=== PATIENT | female | born 1995 | race Caucasian/White ===

== ENCOUNTER → 2022-12-09 13:08 | Outpatient (CLI) | payer BC, SELFPAY ==
--- NOTE | ~2022-12-09 | US_ITS ---
EXAMINATION: US OB <=14 wk fetus w TV DATE: 12/09/2022 13:41 INDICATION: Gestational dating and viability. TECHNIQUE: Real-time transabdominal and transvaginal obstetric ultrasound. FINDINGS: No prior studies for comparison. The uterus measures 13 x 7 x 7.9 cm. There is an intrauterine gestational sac, with pole identi fied. There is a small subchorionic hemorrhage measuring 1.5 x 0.9 x 0.3 cm. The crown rump length me asures 2.6 cm, which correlates with a estimated gestational age of 9 weeks 3 days. heart ton es are identified measuring 177 BPM. There is a 2.8 cm corpus luteal cyst of the left ovary. Right ov sony is unremarkable. IMPRESSION: 1. SL IUP with an EGA of 9 weeks, 3 days (EDC by current ultrasound of 07/11/2023). 2: Small subchorionic hemorrhage. 3: Corpus luteal cyst of the left ovary measuring 2.8 cm. Reviewed, dictated and finalized at location L. IMPRESSION: 1. SL IUP with an EGA of 9 weeks, 3 days (EDC by current ultrasound of 07/11/20). 2: Small subchorionic hemorrhage. 3: Corpus luteal cyst of the left ovary measuring 2.8 cm.
== END ==
PROVIDERS: PCP Physician Assistant; Visit Provider Registered Nurse
DX: Z36.9 Encounter for antenatal screening, unspecified (principal); Z3A.09 9 weeks gestation of pregnancy
CPT/HCPCS: 76801; 76817

== ENCOUNTER 2022-12-25 14:19 | Outpatient (CLI) | payer BC, SELFPAY ==
[2022-12-25 15:26] LABS: Hematocrit 34.2 % (37.0-47.0); Hemoglobin 11.6 g/dL (12.0-15.0); Mean Corpuscular HGB Conc 33.9 g/dl (32-36); Mean Corpuscular Hemoglobin 29.7 pg (26-34); Mean Corpuscular Volume 87.7 fl (80-100); Platelet Count Result 278 k/mm3 (150-375); Red Cell Distribution Width 12.5 % (11.5-14.5); White Blood Count 9.6 K/mm3 (4.5-10.0)
[2022-12-25 15:32] LABS: Appearance Urine Clear (Clear); Bilirubin Urine Negative (Negative); Blood Urine Negative (Negative); Color Urine Yellow (Yellow); Glucose Urine UA Negative (Negative); Ketones Urine 2+ mg/dL (Negative); Leukocyte Esterase Ur Negative LEU/UL (NEGATIVE); Nitrate Urine Negative (Negative); Protein Urine Negative (Negative); Specific Grav Ur 1.016 (1.001-1.035); Urobilinogen Urine 0.2 mg/dL (<2.0)
[2022-12-25 16:03] LABS: Vitamin D 25 Hydroxy 29.5 ng/mL
[2022-12-25 16:11] LABS: HIV 1/2 Ab P24 Ag Result Negative (Negative)
[2022-12-25 16:14] LABS: Add Urine Microscopic? NO
[2022-12-25 16:34] LABS: Hepatitis C Virus Antibody Negative (Negative)
[2022-12-25 16:37] LABS: Hepatitis B Surface Antigen Negative (Negative); Rubella IgG Antibody 4.7 IU/ML
[2022-12-26 13:18] LABS: Rapid Plasma Reagin Non-Reactive (NonReactive)
[2022-12-28 11:53] LABS: Varicella IgG Antibody <135.00 Index (>=165.00)
== END 2022-12-25 14:20 | disposition home or self-care (01) ==
LOC: ANHLAB 14:21
PROVIDERS: PCP Physician Assistant; Visit Provider Obstetrics & Gynecology
DX: Z34.90 Encounter for supervision of normal pregnancy, unspecified, unspecified trimester (principal); Z3A.00 Weeks of gestation of pregnancy not specified
CPT/HCPCS: 36415; 81003; 82306; 83021; 84443; 85027; 86592; 86703; 86762; 86787; 86803; 86850; 86900; 86901; 87086; 87340; G0432

== ENCOUNTER 2023-02-24 17:30 | Outpatient (RCR) | payer BC, SELFPAY ==
[2023-02-24] MEDS: RHO(D) IMMUNE GLOBULIN 300 MCG/2 ML SYRINGE IM (17:42)
== END 2023-05-25 23:59 | disposition home or self-care (01) ==
LOC: ANHOBOP 17:30
PROVIDERS: PCP Physician Assistant; Visit Provider Obstetrics & Gynecology
DX: Z29.13 Encounter for prophylactic Rho(D) immune globulin (principal); O36.0190 Maternal care for anti-D [Rh] antibodies, unspecified trimester, not applicable or unspecified; Z3A.00 Weeks of gestation of pregnancy not specified
CPT/HCPCS: 36415; 85461; 86850; 86900; 86901; 90384; 96372; J2790

== ENCOUNTER 2023-04-27 07:05 | Outpatient (CLI) | payer BC, SELFPAY ==
[2023-04-27 09:28] LABS: Basophils Percent Auto 0.4 % (0.2-1.2); Eosinophils Absolute Auto 0.1 K/mm3 (0-0.3); Eosinophils Percent Auto 1.5 % (0-4.4); Hematocrit 32.9 % (37.0-47.0); Hemoglobin 10.7 g/dL (12.0-15.0); Immature Granulocyte Absolute 0.04 K/mm3 (0.00-0.031); Immature Granulocyte Percent A 0.5 % (0-0.5); Lymphocytes Absolute Auto 1.32 K/mm3 (0.9-3.2); Lymphocytes Percent Auto 16.4 % (18.3-44.2); Mean Corpuscular HGB Conc 32.5 g/dl (32-36); Mean Corpuscular Hemoglobin 29.9 pg (26-34); Mean Corpuscular Volume 91.9 fl (80-100); Mean Platelet Volume 10.4 fl (7.4-10.4); Monocytes Absolute Auto 0.6 K/mm3 (0.1-0.6); Monocytes Percent Auto 7.6 % (2.6-8.5); Neutrophils Absolute Auto 5.9 K/mm3 (1.3-6.7); Neutrophils Percent Auto 73.6 % (45.5-73.1); Platelet Count Result 229 k/mm3 (150-375); Red Blood Count 3.58 M/mm3 (4.2-5.4); Red Cell Distribution Width 12.5 % (11.5-14.5); White Blood Count 8.1 K/mm3 (4.5-10.0)
[2023-04-27 09:44] LABS: Glucose 1 Hour PP 50gm Dose 82 mg/dL
[2023-04-28] MEDS: RHO(D) IMMUNE GLOBULIN 300 MCG/2 ML SYRINGE IM (14:39)
== END 2023-04-27 07:06 | disposition home or self-care (01) ==
LOC: ANHLAB 07:06
PROVIDERS: PCP Physician Assistant; Visit Provider Obstetrics & Gynecology
DX: Z34.93 Encounter for supervision of normal pregnancy, unspecified, third trimester (principal)
CPT/HCPCS: 36415; 82947; 85025; 85461; 86850; 86880; 86900; 86901; 86902; 90384; 96372; J2790

== ENCOUNTER 2023-06-09 13:16 | Outpatient (CLI) | payer BC, SELFPAY ==
[2023-06-09 13:33] LABS: Hematocrit 33.9 % (37.0-47.0); Hemoglobin 10.8 g/dL (12.0-15.0); Mean Corpuscular HGB Conc 31.9 g/dl (32-36); Mean Corpuscular Volume 90.9 fl (80-100); Platelet Count Result 224 k/mm3 (150-375); Red Blood Count 3.73 M/mm3 (4.2-5.4); Red Cell Distribution Width 12.9 % (11.5-14.5); White Blood Count 11.1 K/mm3 (4.5-10.0)
[2023-06-09 15:45] LABS: Rapid Plasma Reagin Non-Reactive (NonReactive)
[2023-06-09 19:16] LABS: HIV 1/2 Ab P24 Ag Result Negative (Negative)
== END 2023-06-09 13:17 | disposition home or self-care (01) ==
LOC: ANHLAB 13:17
PROVIDERS: PCP Physician Assistant; Visit Provider Obstetrics & Gynecology
DX: Z34.03 Encounter for supervision of normal first pregnancy, third trimester (principal); Z3A.00 Weeks of gestation of pregnancy not specified
CPT/HCPCS: 36415; 85027; 86592; 86703; G0432

== ENCOUNTER 2023-06-30 15:30 | Outpatient (CLI) | payer BC, SELFPAY | END 2023-06-30 15:31 | disposition home or self-care (01) | LOC: ANHLAB 15:31 | PROVIDERS: PCP Physician Assistant; Visit Provider Registered Nurse | DX: Z34.93 Encounter for supervision of normal pregnancy, unspecified, third trimester (principal) | CPT/HCPCS: 36415; 86850; 86880; 86902 ==

== ENCOUNTER 2023-07-06 15:51 | Inpatient (IN) | payer BC, SELFPAY ==
[2023-07-06] VITALS (17 sets, daily range): BP systolic 90–120; BP diastolic 41–73; PULSE 67–90; TEMP 36.6–37.1; BMI 32.7
--- NOTE | 2023-07-06 16:16 | LDADM ---
This patient, Ron Edwards, was admitted to Labor/Delivery/Recovery 107 on 07/06/23 at 15:51. Plans for labor, pain management and were discussed with patient. Patient/family oriented to hospital policies and general routines including ID bracelet, bed and alarms, visiting hours, pain management, procedures, bathroom and other care routines, personal items, smoking policy, room service/diet and guest tray routines, security routines, and visiting hours. Patient/Family are encouraged to report perceived risks to care and to ask questions if they do not understand what they are told or what they should do. See OBIX for further documentation.
[2023-07-06 16:28] LABS: Basophils Percent Auto 0.3 % (0.2-1.2); Eosinophils Absolute Auto 0.1 K/mm3 (0-0.3); Hematocrit 33.8 % (37.0-47.0); Hemoglobin 11.4 g/dL (12.0-15.0); Immature Granulocyte Absolute 0.08 K/mm3 (0.00-0.031); Immature Granulocyte Percent A 0.9 % (0-0.5); Mean Corpuscular HGB Conc 33.7 g/dl (32-36); Mean Corpuscular Hemoglobin 29.8 pg (26-34); Mean Corpuscular Volume 88.3 fl (80-100); Mean Platelet Volume 10.1 fl (7.4-10.4); Monocytes Absolute Auto 0.7 K/mm3 (0.1-0.6); Monocytes Percent Auto 7.1 % (2.6-8.5); Neutrophils Absolute Auto 6.9 K/mm3 (1.3-6.7); Neutrophils Percent Auto 73.7 % (45.5-73.1); Platelet Count Result 230 k/mm3 (150-375); Red Blood Count 3.83 M/mm3 (4.2-5.4); White Blood Count 9.4 K/mm3 (4.5-10.0)
[2023-07-06] MEDS: DINOPROSTONE 10 MG VAG INSERT VAGINAL (16:51)
[2023-07-07] VITALS (82 sets, daily range): BP systolic 96–173; BP diastolic 46–144; PULSE 61–285; TEMP 36.6–37.6; O2SAT 96–100
[2023-07-07] MEDS: LACTATED RINGERS 1,000 ML 125 ML IV CONT ×3 (05:44→13:50)
[2023-07-07] MEDS: OXYTOCIN 30 UNITS/NS 500 ML 30 UNITS/500 ML BAG 6 UNITS IV CONT (05:45)
--- NOTE | 2023-07-07 11:56 | PM.IMHP ---
H&P: HPI History of Present Illness Date/Time: 07/07/23 11:56 Chief Complaint: Medical induction of labor Narrative: She is a 27 y/o G1 at 39 weeks admitted for MIL. PNC uncomplicated. Rubella nonimmune. GBS neg. Review of Systems Review of Systems: All systems reviewed & are unremarkable except as noted in HPI and below Constitutional: Constitutional: Reports no additional constitutional complaints and Denies headache(s) Eyes: Eyes: Denies spots in vision ENT: Reports system reviewed and no additional complaints, except as documented and Denies headache(s) Cardiovascular: Cardiovascular: Denies chest pain and Denies dyspnea Respiratory: Respiratory: Denies dyspnea Gastrointestinal: Gastrointestinal: Reports no additional gastrointestinal complaints Genitourinary: Genitourinary: Reports amenorrhea Musculoskeletal: Musculoskeletal: Reports no additional musculoskeletal complaints Integumentary/Breasts: Skin/Breast: Denies breast mass and Denies rash Neurologic: Denies headache(s) Psychiatric: Psychiatric: Reports no additional psychiatric complaints PMFSH Past Medical History Medical History Shoulder pain Surgical History Surgical History History of tonsillectomy and adenoidectomy [place] teeth removed Family History Family History Father Hypertension Blood clot in vein Mother Hypertension Sibling Melanoma Sister Social History Social History Smoking status: Never smoker Alcohol intake: former Alcohol use details: Not since Substance use: never Substance use type: does not use Do You Feel Safe in your Home?: Yes Lack of Transportation: No Lack of Food: Never True Current Housing: I Have Housing Concerned About Future Housing: No Difficulty Paying Gas/Electric Bills: No Difficulty Paying for Meds: No Currently Unemployed: No Education: Master's Degree or Higher Difficulty w/ Childcare or Family Care: No Living arrangements: with family Occupation/Education: occupation Gender identity (if verbalized by the patient): Female Sexual Orientation (if Verbalized by the Patient): Straight or Heterosexual Spiritual care concerns: No Meds Home Medications and Allergies Home Medications Medication Instructions Recorded Confirmed Type prenat.vits,ashley,[id number] 1 tablet PO DAILY 12/16/22 07/06/23 History magnesium citrate 100 mg capsule 100 mg PO DAILY 04/28/23 07/06/23 History ferrous sulfate 325 mg (65 mg 325 mg PO BID 06/18/23 07/06/23 History iron) tablet docusate sodium 100 mg capsule 100 mg PO BID 06/30/23 07/06/23 History (Colace) Allergies Allergy/AdvReac Type Severity Reaction Status Date / Time No Known Allergies Allergy Verified 06/30/23 14:35 Vital Signs Vital Signs - 24 hr 07/06/23 16:14 07/06/23 16:52 07/06/23 17:00 Temperature Pulse Rate 90 85 Blood Pressure 111/72 104/67 Oxygen Delivery Room Air 07/06/23 16:55 07/06/23 17:30 07/06/23 18:00 Temperature 98.7 F Pulse Rate 89 72 Blood Pressure 98/65 L 93/41 L Oxygen Delivery 07/06/23 18:09 07/06/23 18:30 07/06/23 19:00 Temperature Pulse Rate 77 78 68 Blood Pressure 102/57 L 103/61 120/73 Oxygen Delivery 07/06/23 18:59 07/06/23 19:30 07/06/23 20:00 Temperature 98 F Pulse Rate 67 73 Blood Pressure 104/56 L 107/64 Oxygen Delivery 07/06/23 20:30 07/06/23 21:00 07/06/23 21:30 Temperature Pulse Rate 74 70 77 Blood Pressure 113/67 106/62 105/58 L Oxygen Delivery 07/06/23 22:00 07/06/23 22:30 07/07/23 01:38 Temperature Pulse Rate 83 69 62 Blood Pressure 108/71 90/47 L 102/51 L Oxygen Delivery 07/06/23 22:07 07/07/23 02:45 07/07/23 05:13 [facility]
[2023-07-07 14:36] LABS: Rapid Plasma Reagin Non-Reactive (NonReactive)
--- NOTE | 2023-07-07 15:32 | WPDANESEPPF ---
Anes - Initial Pre Proc Eval Procedure: labor epidural Date/Time: 07/07/23 15:32 Surgeon: Chris Oliveros MD Pre Op Diagnosis: labor pain Pre Op Diagnosis: Induction of Labor Patient Data Age: 27 Gender: F Height: 1.68 m Weight: 92 kg Last Vital Signs Temp 37.6 C H 07/07/23 09:30 Pulse 63 07/07/23 15:30 BP 99/58 L 07/07/23 15:30 Pulse Ox 99 07/07/23 15:29 O2 Del Method Room Air 07/06/23 16:14 Allergies Allergy/AdvReac Type Severity Reaction Status Date / Time No Known Allergies Allergy Verified 06/30/23 14:35 Home Medications Medication Instructions Recorded Confirmed Type prenat.vits,ashley,[id number]-[id number] 1 tablet PO DAILY 12/16/22 07/06/23 History magnesium citrate 100 mg capsule 100 mg PO DAILY 04/28/23 07/06/23 History ferrous sulfate 325 mg (65 mg 325 mg PO BID 06/18/23 07/06/23 History iron) tablet docusate sodium 100 mg capsule 100 mg PO BID 06/30/23 07/06/23 History (Colace) Laboratory Tests 07/06/23 16:20 WBC 9.4 K/mm3 (4.5-10.0) RBC 3.83 L M/mm3 (4.2-5.4) Hgb 11.4 L g/dL (12.0-15.0) Hct 33.8 L % (37.0-47.0) MCV 88.3 fl (80-100) MCH 29.8 pg (26-34) MCHC 33.7 g/dl (32-36) RDW 13.0 % (11.5-14.5) Plt Count 230 k/mm3 (150-375) MPV 10.1 fl (7.4-10.4) Immature Gran % (Auto) 0.9 H % (0-0.5) Neut % (Auto) 73.7 H % (45.5-73.1) Lymph % (Auto) 17.0 L % (18.3-44.2) [place] % (Auto) 7.1 % (2.6-8.5) Eos % (Auto) 1.0 % (0-4.4) Baso % (Auto) 0.3 % (0.2-1.2) Lymph # (Auto) 1.60 K/mm3 (0.9-3.2) [place] # (Auto) 0.7 H K/mm3 (0.1-0.6) Eos # (Auto) 0.1 K/mm3 (0-0.3) Baso # (Auto) 0.0 K/mm3 (0.0-0.1) Abs Immat Gran (auto) 0.08 H K/mm3 (0.00-0.031) Absolute Neuts (auto) 6.9 H K/mm3 (1.3-6.7) Absolute Nucleated RBC 0.0 K/mm3 (0.0-0.012) Nucleated RBC % 0.0 % (0.0-0.2) RPR Non-reactive (NonReactive) Blood Type A Negative Antibody Screen Positive Antibody Identification Passive Due to RH Imm Glob Antigen Identification Cancelled GONZALEZ, IgG Interpret Not Performed GONZALEZ, Poly Interpret Neg GONZALEZ, Complement Interp Not Performed Patient hx anesthesia problems: none Family hx anesthesia problems: none Results Review: All pre-operative results and documents have been reviewed as part of the pre-operative evaluation. [facility] Past Medical History Medical History Shoulder pain Surgical History Surgical History History of tonsillectomy and adenoidectomy [place] teeth removed Family History Family History Father Hypertension Blood clot in vein Mother Hypertension Sibling Melanoma Sister Social History Social History Smoking status: Never smoker Alcohol intake: former Alcohol use details: Not since Substance use: never Substance use type: does not use Do You Feel Safe in your Home?: Yes Lack of Transportation: No Lack of Food: Never True Current Housing: I Have Housing Concerned About Future Housing: No Difficulty Paying Gas/Electric Bills: No Difficulty Paying for Meds: No Currently Unemployed: No Education: Master's Degree or Higher Difficulty w/ Childcare or Family Care: No Living arrangements: with family Occupation/Education: occupation Gender identity (if verbalized by the patient): Female Sexual Orientation (if Verbalized by the Patient): Straight or Heterosexual Spiritual care concerns: No Anes - Eval Final PreProcedure Day of Procedure 07/07/23 15:32 Patient weight: obese ASA classification: II Anesthetic plan: proceed Anesthesia type and monitoring: regional epidural and standard monitoring Resu
[2023-07-07] MEDS: OXYTOCIN 30 UNITS/NS 500 ML 30 UNITS/500 ML BAG 999 UNITS IV CONT (21:07)
--- NOTE | 2023-07-07 21:38 | PM.OBPRVD ---
OB - Vaginal Delivery Note Procedure Delivery date: 07/07/23 Induction method: Per Pitocin Protocol and Per Cervidil Protocol Delivery augmentation: Rupture of Membranes Delivery monitor: External FHT and Internal Uterine Route of delivery: Episiotomy description: None Laceration Description: Perineal - 2nd Degree Delivery repair: vicryl (3.0 vicryl) Specimen: No Quantitative Blood Loss (ml): 200 Anesthesia type: Epidural Disposition: Floor Complications: No immediate complications Narrative: She was admitted for medical induction of labor on 07/06. She had cervidil placed. The morning of 07/07 she was 3 cm and had AROM clear. She continued on Pitocin. She had IUPC placed to better access contractions. She did get into active labor the evening of 07/07 and progressed to complete. She delivered a female infant with right compound hand presentation. Nose and mouth suctioned at perineum. Loose nuchal cord manually reduced. The rest of the infant was delivered and infant was vigorously crying and placed on maternal abdomen. Delayed cord clamping until cord apulsatile for 60 sec and then cord doubly clamped and cut. Cord blood and cord gases obtained. Placenta delivered spontaneously and intact. She sustained a small right vaginal wall laceration repaired with figure of eight 3.0 vicryl. The second degree perineal laceration repaired with 3.0 vicryl. She tolerated procedure well. Baby Date of : 07/07/23 Time of : 20:50 Weeks of gestation at delivery: 39 gender: Female presentation: vertex position: Right Occiput Anterior Placenta delivery description: Spontaneous Cord Vessel Description: 3 Vessels, Loose, Clamped/Cut and Delayed Cord Clamping score one minute: 9 score five minutes: 9 AMG Delivery Billing Delivery Delivery: Delivery Charge
[2023-07-07] MEDS: OXYTOCIN 30 UNITS/NS 500 ML 30 UNITS/500 ML BAG 125 UNITS IV CONT (21:44)
[2023-07-07] MEDS: BENZOCAINE 20% AER SPR (*SP) 56 GM CAN 1 SPRAY TOPICAL (23:29)
[2023-07-07] MEDS: WITCH HAZEL 40 PADS 1 PAD TOPICAL (23:29)
[2023-07-08] VITALS (9 sets, daily range): BP systolic 103–120; BP diastolic 58–71; PULSE 72–90; RESP 16–18; TEMP 36.7–37.3; O2SAT 97–100
--- NOTE | 2023-07-08 00:58 | PC.NURSE ---
Patient transferred to post room #286 via ( W/C ). Support person present. Oriented to unit, room, information board, rooming in, admission packet and security measures. Patient verbalizes understanding.
[2023-07-08] MEDS: IBUPROFEN 600 MG TABLET PO ×3 (01:54→16:23)
[2023-07-08 06:05] LABS: Hematocrit 29.5 % (37.0-47.0); Hemoglobin 9.9 g/dL (12.0-15.0)
[2023-07-08] MEDS: MULTIVIT/MIN/PREN/FOL AC/IRON TABLET 1 TAB PO (07:59)
[2023-07-08] MEDS: DOCUSATE SODIUM 100 MG CAPSULE PO (07:59)
[2023-07-08] MEDS: POLYSACCHARIDE IRON COMPLEX 150 MG CAPSULE PO ×2 (07:59→16:23)
--- NOTE | 2023-07-08 08:21 | WPDANLDPN2 ---
Anes-Prog Note L&D Date/Time: 07/08/23 08:21 Neuro status: Neuro function grossly intact. Cardiovascular status: normal Respiratory status: normal Airway patency: baseline Mental status: baseline Post-Op hydration status: normal Vital Signs: Last Vital Signs Temp 36.7 C 07/08/23 04:33 Pulse 81 07/08/23 04:33 Resp 18 07/08/23 04:33 BP 105/58 L 07/08/23 04:33 Pulse Ox 98 07/08/23 04:33 O2 Del Method Room Air 07/08/23 01:15 Pain score (VAS): 0 I/O: Intake & Output 07/07/23 07/08/23 07/08/23 23:59 07:59 15:59 Output Total 200 80 Balance -200 -80 Post-procedural complaints: none Patient feedback: Patient satisfied with anesthetic care.
--- NOTE | 2023-07-08 15:39 | PC.NURSE ---
[id number] Introductions were made. Mother is going to the restroom, then will call after infant is placed [id number]. [id number] Introductions were made, then consulted with patient to assess needs related to . Mother led the conversation with her?plans to feed?her infant and the?experience so far. Encouraged understanding of the benefits of skin to skin (demonstrating unwrapping and placing upright on her chest), stimulating with massage touch, changing positions to encourage wakefulness, how to watch for early feeding cues, responsive feeding, feeding on demand (aiming for 8-12 times in 24 hours, about every 2-3 hours), milk production, building/maintaining a milk supply, duration of feeding, signs of adequate intake/output and how to record on the feeding sheet. Mother works well with her infant with encouragement and education. Reviewed positioning and ear, shoulder, hip alignment, supporting the breast to facilitate a deep latch, asymmetrical latch (off-center), leading with the chin with a big, open, wide gape and body close to mother. latched optimally to the right breast in cross cradle position. Education given to the mother of how to visualize the suckling (with good rocking jaw motion), swallows (dropping of the lower jaw) and how to listen for drinking at the breast (the ka sound). Infant was able to maintain latch without pain to mother protecting the nipple with optimal positioning and latching. Reviewed comfort measures of healing with a warm, wet washcloth to rinse breast, then leave open to air-dry, good handwashing when or touching the breast/nipples to prevent infection. Mother voiced understanding of skin to skin, stimulating with massage touch, responsive feedings, hand expressed colostrum, talking to infant to encourage if it has been 2 -2.5 hours since the start of the last , to call if infant does not latch, or if there is discomfort with . Resources used for education were facilitated with the visual educational handouts, tool, mom and baby guide. Inpatient/outpatient resources provided with feeding sheet, name written on the communication board, and the mom/baby guide. Parents voiced understanding of information, demonstrated learning and will call if there is a request for assistance. Reported to the Primary RN. [id number] Consulted with patient to assess needs related to . Discussed with mother her successes, concerns and any questions she has. We reviewed working with the infant, supporting breast, protecting her nipples with an optimal deep latch, good positioning, and good hand washing. Encouraged understanding the benefits of skin to skin, responding to feeding cues, frequencies of feeding 8-12 times in 24 hours (approximately 2-3 hours), duration of feedings, milk production, intake/output feeding sheet and signs of adequate intake encouraging swallowing at the breast. Reviewed positioning and alignment, supporting breast, off-centered (asymmetrical latch) and leading with the chin with big, open, wide gape. Infant is sleepy and reluctant. Infant is placed [id number] and mother encouraged to give another hour and attempt to wake to latch. Mother voiced understanding of the education shared, to call for assistance if the infant does not latch or if there is discomfort with .
[2023-07-09] MEDS: IBUPROFEN 600 MG TABLET PO ×2 (00:40→08:20)
[2023-07-09 07:40] VITALS: BP 115/66; PULSE 74; RESP 16; TEMP 36.6; O2SAT 100
[2023-07-09] MEDS: POLYSACCHARIDE IRON COMPLEX 150 MG CAPSULE PO (08:20)
[2023-07-09] MEDS: MULTIVIT/MIN/PREN/FOL AC/IRON TABLET 1 TAB PO (08:20)
[2023-07-09] MEDS: DOCUSATE SODIUM 100 MG CAPSULE PO (08:20)
[2023-07-09] MEDS: MEASLES,MUMPS,RUBELLA VACCINE 0.5 ML VIAL SUB-Q (12:24)
--- NOTE | 2023-07-09 12:32 | PC.NURSE ---
Patient was given the opportunity to view the discharge video Mother & Baby Care, The First Two Weeks and to ask questions. Patient declined viewing the video and has been given the mother/baby guide for home reference. Parents stated they will review video from home.
--- NOTE | 2023-07-09 13:06 | PC.NURSE ---
[id number] Mother led the conversation with her experience so far, plan to feed her , and her ability to independently latch optimally without discomfort. Reminded mother to use good handwashing technique to prevent infection. Mother is feeding appropriately for growth of infant and understands stimulating to eat if needed. has had appropriate feedings in the last 24 hours meets the outcomes for weight, output, blood sugar and jaundice at this time. Mother states she is confident to continue effectively her at home, when to call for assistance, questions answered and mother is demonstrating effective on the left breast using the football positioning, then after [id number] latched infant to the right breast using cross cradle without pain. demonstrated swallowing at the breast and parents demonstrated stimulating to engage in actively . Reinforced understanding of milk production, transition of milk, signs of adequate intake, transition of stool, prevention/relief of engorgement, plugged ducts, mastitis, responsive watching for feeding cues, the different methods of stimulating infant to breastfeed on demand aiming for 1-3 hours after the start of the last feeding, community resources, and when to call a provider using the resource of the feeding sheet, and the mom and baby guide. Mother voiced understanding of the education shared.
--- NOTE | 2023-07-27 19:47 | PM.OBDSVD ---
DS: Admitting Diagnosis Discharge Date 07/09/23 Admitting Diagnosis Induction of labor DS: Discharge Diagnosis Discharge Diagnosis (1) Delivery normal: Code(s): O80 - Encounter for full-term uncomplicated delivery Status: Acute OB - DS: Summary Hospital Course Hospital Course: She was admitted for medical induction of labor. She had an uncomplicated vaginal delivery. She did well . Baby did well. She was discharged to home on day 2. OB Procedures : Ultrasound OB Procedures Intrapartum: Spontaneous Vag Delivery OB Procedures: : None Peripartum Data Laceration Description: Perineal - 2nd Degree Episiotomy description: None Time Spent with Patient Time attestation: Total time spent providing and/or coordinating discharge services: Discharge Plan Discharge Attending physician on discharge: Chris Oliveros Consulting providers: Elliot Jones; Marleny Mosher Discharging Clinician: Chris Oliveros Anticipated Discharge Date/Time: 07/09/23 10:55 Patient Disposition: Home, Self-Care Activity: may shower, no straining and pelvic rest Diet: regular Discharge Instructions: Education: Mom and Baby Guide Given to: Mother Follow-Up: Call your delivering provider's office for an appointment to be seen in: Call for appointment Baby will be following up with Dr. Tovar July 10 at 10:20 a.m. Mother will follow up with Dr. Oliveros. (No need for f/u at [facility]) BREAST CARE: * Wear a snug supportive bra. * For engorgement discomfort: Breast Feeding: * Apply warm moist washcloths * Express milk as needed to relieve engorgement * Wear loose clothing * For sore nipples: * Identify correct latch-on * Apply warm moist washcloths before and after nursing * Air dry nipples after nursing * May apply Lansinoh cream to nipples EPISIOTOMY/PERINEAL CARE: * Until bleeding stops, use your bert bottle after urinating * Change your pad frequently throughout the day * You may take sitz baths several times a day (fill your bathtub with warm water and soak for 20 minutes.) Do NOT bathe in the water * No tub baths until seen by your physician - You may shower ACTIVITY: * Rest as much as possible. * Do not exercise or lift anything heavier than your baby (such as laundry or other children.) * Avoid stairs or driving as much as possible. * Do not put anything into the vagina. No douching, tampons, or sexual activity until seen by physician. NOTIFY PHYSICIAN IF YOU HAVE ANY QUESTIONS OR IF ANY OF THE FOLLOWING SYMPTOMS OCCUR: * If your perineum becomes red, swollen, or more painful than what you have experienced in the hospital. * If your vaginal bleeding becomes foul smelling. * If your vaginal bleeding becomes more heavy than a period or if your bleeding changes from pink to bright red. However, you may pass an occasional walnut-sized clot once or twice for the first week . * If you experience a sharp, shooting pain in you calves. * If you discover a hard, reddened area on your breast or if you experience flu-like symptoms. DIET: * Eat regular, well-balanced meals. * Drink plenty of fluids daily. If , drink to thirst. Patient Instructions: Vaginal Delivery (DC) Stand Alone Forms: General Discharge Information Follow-up/Referrals: Chris Oliveros MD [Physician] - Call for Appointment Discharge Medications: Continued prenat.vits,ashley,oiv-dotq-gxsdf Tablet 1 tablet PO DAILY docusate sodium [Colace] 100 mg capsule 100 mg PO BID ferrous sulfate 325 mg (65 mg iron) tablet 325 mg PO BID Discontinued magnesium citrate 100 mg capsule 100 mg PO DAILY Date of admission: 07/06/23 15:51 Primary Care Provider: Juan Antonio,Abbey Rachel Admitting Provider: Chris Oliveros Attending physician
== END 2023-07-09 13:35 | disposition home or self-care (01) | DRG 807 ==
LOC: ANHLDR 15:57 → ANHOB2 07-08 00:59
PROVIDERS: Admitting Provider Obstetrics & Gynecology; PCP Physician Assistant; Visit Provider Obstetrics & Gynecology
DX: O69.81X0 Labor and delivery complicated by cord around neck, without compression, not applicable or unspecified (principal); Z37.0 Single live birth; Z3A.39 39 weeks gestation of pregnancy; O70.1 Second degree perineal laceration during delivery
CPT/HCPCS: 36415; 85014; 85018; 85025; 86592; 86850; 86880; 86900; 86901; 86902; 90710; A9270; J2590; J2795; J7120